=== PATIENT | male | born 1960 | race Caucasian/White ===

== ENCOUNTER → 2021-02-05 | Outpatient (CLI) | payer MEDICAID ==
[~2021-02-05] MED LIST: LEVO112T4 PO; TRAM50TA2 PO
[2021-02-05 09:28] LABS: BASOPHILS % (AUTO) 1 % (0-1); EOSINOPHILS % (AUTO) 2 % (1-7); LYMPHOCYTES % (AUTO) 24 % (22-44); MEAN CORPUSCULAR HEMOGLOBIN 32.1 pg (27.5-34.5); MEAN CORPUSCULAR HGB CONC 34.6 g/dL (33.2-36.2); MEAN PLATELET VOLUME 7.9 fL (7.4-10.4); MONOCYTES % (AUTO) 8 % (2-9); NEUTROPHILS % (AUTO) 67 % (42-75); PLATELET COUNT 157 x10^3/uL (130-400); RED BLOOD COUNT 4.68 x10^6/uL (4.38-5.82); RED CELL DISTRIBUTION WIDTH 12.8 % (9.4-14.8)
[2021-02-05 09:35] LABS: ANION GAP 6 mmol/L (5-15); CALCIUM 9.3 mg/dL (8.5-10.1); CHLORIDE 105 mmol/L (98-107); CREATININE 0.78 mg/dL (0.7-1.3)
[2021-02-05 09:36] LABS: INTERNATIONAL NORMALIZED RATIO 1.01 (0.93-1.1); PROTHROMBIN TIME 10.8 Seconds (9.6-11.5)
== END | disposition home or self-care (01) ==
LOC: STAR 08:09
PROVIDERS: ATTEND Student in an Organized Health Care Education/Training Program
DX: Z01.818 Encounter for other preprocedural examination (principal); N43.3 Hydrocele, unspecified
CPT/HCPCS: 36415; 80048; 85025; 85610; 93005

== ENCOUNTER 2021-02-09 11:07 | Day surgery (SDC) | payer MEDICAID ==
[~2021-02-09] VITALS: Ht 172.7 cm; Wt 90.0 kg
[2021-02-09 11:32] VITALS: BP 138/83
[2021-02-09] MEDS ORDERED: CHLORHEXIDINE 15 ML UDC PO ONE (12:00)
[2021-02-09] MEDS ORDERED: LACTATED RINGERS 1,000 ML IV SCH (12:00)
[2021-02-09] MEDS ORDERED: MIDAZOLAM 1 MG/ML, 2ML ONE (13:04)
[2021-02-09] MEDS ORDERED: FENTANYL PF 250 MCG/5ML ONE (13:04)
[2021-02-09] MEDS ORDERED: PROPOFOL 10 MG/ML, 20ML ONE (13:05)
[2021-02-09] MEDS ORDERED: DEXAMETHASONE 4 MG/ML, 1ML ONE (13:05)
[2021-02-09] MEDS ORDERED: CEFAZOLIN 1,000 MG ONE (13:05)
[2021-02-09] MEDS ORDERED: ONDANSETRON 2MG/ML, 2ML ONE (13:05)
[2021-02-09] MEDS ORDERED: BUPIVACAINE/PF 0.5% ONE (13:44)
[2021-02-09] MEDS ORDERED: FENTANYL PF 100 MCG/2ML IV PRN (14:00)
[2021-02-09] MEDS ORDERED: LABETALOL 5MG/ML, 20ML IV PRN (14:00)
[2021-02-09] MEDS ORDERED: hydrALAzine 20 MG/ML, 1ML IV PRN (14:00)
[2021-02-09] MEDS ORDERED: OXYcodone 5 MG/5 ML ORAL.SOL UDC PO PRN (14:00)
[2021-02-09] MEDS ORDERED: MEPERIDINE/PF 25MG/0.5ML IVPush PRN (14:00)
[2021-02-09] MEDS ORDERED: ONDANSETRON 2MG/ML, 2ML IVPush PRN (14:00)
[2021-02-09] MEDS ORDERED: HYDROmorphone 1 MG/ML, 1ML INJ IVPush PRN (14:00)
[2021-02-09] MEDS ORDERED: morphine SULFATE 10 MG/ML, 1ML IVPush PRN (14:00)
[2021-02-09] MEDS ORDERED: LABETALOL 5MG/ML, 20ML ONE (16:06)
== END 2021-02-09 16:43 | disposition home or self-care (01) ==
LOC: OUT 11:07
PROVIDERS: ATTEND Student in an Organized Health Care Education/Training Program
DX: N43.2 Other hydrocele (principal); Z88.3 Allergy status to other anti-infective agents; Z79.899 Other long term (current) drug therapy; Z91.013 Allergy to seafood; Z72.89 Other problems related to lifestyle
CPT/HCPCS: 55040; 88302; J0690; J1100; J2250; J2405; J2704; J3010; J7120